=== PATIENT | male | born 1965 | race Two or more races ===

== ENCOUNTER 2018-01-16 08:23 | Inpatient (IN) | payer OTHER ==
[2018-01-04 18:02] LABS: BASOPHILS % (AUTO) 0.9 % (0.0-2.0); HEMATOCRIT 49.4 % (42.0-52.0); HEMOGLOBIN 16.4 G/DL (14.2-18.0); LYMPHOCYTES % (AUTO) 30.8 % (20.0-45.0); MEAN CORPUSCULAR VOLUME 80 FL (80-99); MONOCYTES % (AUTO) 6.5 % (1.0-10.0); NEUTROPHILS % (AUTO) 59.8 % (45.0-75.0); PLATELET COUNT 261 K/UL (150-450); RED BLOOD COUNT 6.16 M/UL (4.70-6.10); RED CELL DISTRIBUTION WIDTH 12.8 % (11.6-14.8)
[2018-01-04 18:21] LABS: ALANINE AMINOTRANSFERASE 58 U/L (12-78); ALBUMIN 4.2 G/DL (3.4-5.0); ALBUMIN/GLOBULIN RATIO 1.1 (1.0-2.7); ALKALINE PHOSPHATASE 98 U/L (46-116); ANION GAP 8 mmol/L (5-15); ASPARTATE AMINO TRANSFERASE 23 U/L (15-37); BILIRUBIN,TOTAL 0.4 MG/DL (0.2-1.0); BLOOD UREA NITROGEN 10 mg/dL (7-18); CALCIUM 9.3 MG/DL (8.5-10.1); CARBON DIOXIDE 29 MMOL/L (21-32); CHLORIDE 102 MMOL/L (98-107); CREATININE 0.7 MG/DL (0.55-1.30); POTASSIUM 3.6 MMOL/L (3.5-5.1); SODIUM 139 MMOL/L (136-145)
--- NOTE | 2018-01-05 11:56 | Diagnostic Imaging Report ---
Indication: Cough Comparison: None 2 views of the chest obtained. Findings: Cardiomediastinal silhouette and pulmonary vascularity are within normal limits for age. The diaphragmatic contour is smooth and costophrenic angles are sharp. No pleural effusions are identified. The bones are unremarkable. Impression: No acute disease
[~2018-01-16] VITALS: Ht 167.6 cm; Wt 107.5 kg
[2018-01-16] VITALS (9 sets, daily range): BP systolic 111–134; BP diastolic 60–84
[~2018-01-16 08:23] MED LIST: ceFAZolin sod 2 GM in D5W 110 ML IVPB ONE
[2018-01-16] MEDS ORDERED: GLIPIZIDE5 MG ORAL (09:04)
[2018-01-16] MEDS ORDERED: HUMULIN N100 UNIT/4 SQ ×2 (09:04→09:06)
[2018-01-16] MEDS ORDERED: NORVASC5 MG ORAL (09:04)
[2018-01-16] MEDS ORDERED: METFORMIN HCL1000 M1 ORAL (09:04)
[2018-01-16] MEDS ORDERED: SIMVASTATIN20 MG ORAL (09:04)
--- NOTE | 2018-01-16 09:15 | Pre-Procedure Note/Attestation ---
Pre-Procedure Note/Attestation Complete Prior to Procedure Procedure Narrative: L3-5 B, L5S1 L laminoforaminotomies/discectomy Indications for Procedure Pre-Operative Diagnosis: L3-s1 stenosis Attestation I attest that I discussed the nature of the procedure; its benefits; risks and complications; and alternatives (and the risks and benefits of such alternatives ), prior to the procedure, with the patient (or the patient's legal insurance verification representative). I attest that, if there was a reasonable possibility of needing a blood transfusion, the patient (or the patient's legal insurance verification representative) was given the [facility] standardized written summary, pursuant to the [place] Blood Safety Act ([place] Health and Safety Code # 1645, as amended). I attest that I re-evaluated the patient just prior to the surgery and that there has been no change in the patient's H&P, except as documented below: MAJO AMBROSE Jan 16, 2018 09:15
--- NOTE | 2018-01-16 09:21 | Brief Operative Note ---
Immediate Post Operative Note Operative Note Pre-op Diagnosis: L3-s1 stenosis Procedure: L3-5 B, L5S1 L laminoforaminotomies/discectomy (discectomy r l34, L l5s1) Post-op Diagnosis: same as pre-op Findings: consistent w/pre-op dx studies Surgeon: wiliam Review Manager: leda tavarez Anesthesiologist: laura Anesthesia: general Specimen: yes - disc lamina Complications: none Condition: stable Fluids: 1200 Estimated Blood Loss: volume - 150 Drains: hemovac Implant(s) used?: No MAJO AMBROSE Jan 16, 2018 09:21
[2018-01-16] MEDS ORDERED: Thrombin 5000 units TOPIC ONE (13:33)
[2018-01-16] MEDS ORDERED: EPINEPHrine 1mg/1ml Amp ONE (13:34)
[2018-01-16] MEDS ORDERED: Bupivacaine 0.5% Inj 30 ml vial INJ ONE (13:34)
[2018-01-16] MEDS ORDERED: Bacitracin 50000 Units Vial ONE (13:35)
[2018-01-16] MEDS ORDERED: Vancomycin 1gm inj IVPB ONE ×3 (13:35→18:58)
[2018-01-16] MEDS ORDERED: Gelfoam Absorbable 1gm powder pkt TOPIC ONE (13:35)
[2018-01-16] MEDS ORDERED: Thrombin 5000 units spray kit TOPIC ONE (13:35)
[2018-01-16] MEDS ORDERED: Glycopyrrolate 0.2mg/ml 1ml Vial ONE (15:00)
[2018-01-16] MEDS ORDERED: Propofol 1,000mg/ 100ml btl IV ONE (15:00)
[2018-01-16] MEDS ORDERED: Midazolam 2mg/2ml Inj ONE (15:00)
[2018-01-16] MEDS ORDERED: Ketorolac 30mg Inj ONE (15:00)
[2018-01-16] MEDS ORDERED: Zemuron 50mg/5ml Inj IV ONE (15:00)
[2018-01-16] MEDS ORDERED: Neostigmine 1mg/ml 10ml Inj ONE (15:00)
[2018-01-16] MEDS ORDERED: Succinylcholine 20mg/ml 10ml vial ONE (15:00)
[2018-01-16] MEDS ORDERED: LR 1000ml ONE (15:00)
[2018-01-16] MEDS ORDERED: fentaNYL 100 mcg/2 mL IV ONE (15:00)
[2018-01-16] MEDS ORDERED: NS Irrig 1000ml ONE (15:00)
[2018-01-16] MEDS ORDERED: Morphine Sulfate 10mg/ml Inj ONE (15:00)
[2018-01-16] MEDS ORDERED: LR 1000ml 1,000 ML IVLG SCH (15:58)
--- NOTE | 2018-01-16 15:58 | Anethesia Preoperative Eval ---
Anesthesia Pre-op PMH/ROS General Date of Evaluation: Jan 16, 2018 Time of Evaluation: 14:40 Anesthesiologist: Brenda ASA Score: ASA 3 Mallampati Score Class I : Soft palate, uvula, fauces, pillars visible Class II: Soft palate, uvula, fauces visible Class III: Soft palate, base of uvula visible Class IV: Only hard plate visible Mallampati Classification: Class III Surgeon: Tito Diagnosis: Lumbar spinal stenosis Surgical Procedure: L3-L5 laminotomy with decompression Anesthesia History: none Family History: no anesthesia problems Allergies: Coded Allergies: No Known Allergies (Unverified , 01/16/18) Medications: see eMAR Past Medical History Cardiovascular: Reports: HTN, arrhythmia - h/o AF stable past ablasion, Denies: CAD, [place], valve dz, other Pulmonary: Denies: asthma, COPD, KERWIN, other Gastrointestinal/Genitourinary: Reports: GERD, Denies: CRI, ESRD, other Neurologic/Psychiatric: Denies: dementia, CVA, depression/anxiety, TIA, other Endocrine: Reports: DM, Denies: hypothyroidism, steroids, other HEENT: Denies: cataract (L), cataract (R), glaucoma, CHEESH-NA (L), CHEESH-NA (R), other Hematology/Immune: Denies: anemia, DVT, bleeding disorder, other Musculoskeletal/Integumentary: Denies: OA, RA, DJD, DDD, edema, other Other: obesity PMH Narrative: as above PSxH Narrative: cardiac ablation Anesthesia Pre-op Phys. Exam Physician Exam Last Vital Signs Date Time Temp Pulse Resp B/P (MAP) Pulse Ox O2 Delivery O2 Flow Rate FiO2 01/16/18 08:53 97.9 93 18 134/84 96 Room Air 97.9 Constitutional: NAD Neurologic: CN 2-12 intact Cardiovascular: RRR Respiratory: CTA Gastrointestinal: S/NT/ND Airway Exam Mallampati Score: Class III MO: limited Neck: short ROM: limited Teeth: missing Dentures: no upper, no lower Anesthesia Pre-op A/P Labs see chart Studies Pre-op Studies: EKG - NSR Risk Assessment & Plan Assessment: ASA 3 Plan: GA with ETT prone position neuromonitoring Status Change Before Surgery: No Pre-Antibiotics Drug: Ancef 2 gr. Given Within 1 Hr of Incision: Yes Time Given: 15:16 GIOVANNA DIXON M.D. Jan 16, 2018 15:58
[2018-01-16] MEDS ORDERED: Meperidine 50mg/ml Inj(FOR RIGORS ONLY) IV PRN (16:00)
[2018-01-16] MEDS ORDERED: Midazolam 2mg/2ml Inj IVP PRN (16:00)
[2018-01-16] MEDS ORDERED: Ketorolac 30mg Inj IV PRN (16:00)
[2018-01-16] MEDS ORDERED: Hydromorphone 0.5mg/0.5ml inj IVP PRN (16:00)
[2018-01-16] MEDS ORDERED: DiphenhydrAMINE 50mg/ml Inj IVP PRN (16:00)
[2018-01-16] MEDS ORDERED: Propofol 200mg/20ml IV ONE (16:35)
[2018-01-16] MEDS ORDERED: D5 1/2NS 1,000 ML IV SCH (18:14)
[2018-01-16] MEDS ORDERED: HYDROcodone/Acetamin 7.5/325 tab ORAL PRN ×2 (18:15)
[2018-01-16] MEDS ORDERED: Norco 5mg/325mg tab ORAL PRN (18:15)
[2018-01-16] MEDS ORDERED: HYDROmorphone 1mg/ml Carpuject SUBQ PRN ×2 (18:15→18:45)
[2018-01-16] MEDS ORDERED: Milk of Magnesia 30ml Ud ORAL PRN (18:15)
[2018-01-16] MEDS ORDERED: traMADol 50mg tab ORAL PRN (18:15)
[2018-01-16] MEDS ORDERED: Chloraseptic Spray 20mL Bottle ORAL PRN (18:45)
[2018-01-16] MEDS ORDERED: Cyclobenzaprine 10mg Tab ORAL PRN (18:45)
[2018-01-16] MEDS ORDERED: oxyCODONE 5mg IR tab ORAL PRN (18:45)
[2018-01-16] MEDS ORDERED: HYDROcodone/Acetamin 10/325 tab ORAL PRN (18:45)
[2018-01-16] MEDS: fentaNYL 100 mcg/2 mL IV PRN ×2 (19:21→19:41)
[2018-01-16] MEDS ORDERED: PCA HYDROmorphone 1mg/ml 30 ML IV PRN (19:48)
--- NOTE | 2018-01-16 20:29 | Immediate Post-Op Evaluation ---
Immediate Post-Op Evalulation Immediate Post-Op Evalulation Procedure: L3-L5 laminotomy with decompression Date of Evaluation: Jan 16, 2018 Time of Evaluation: 19:14 IV Fluids: 1500 Blood Products: none Estimated Blood Loss: 200 Urinary Output: 50 Blood Pressure Systolic: 108 Blood Pressure Diastolic: 56 Pulse Rate: 84 Respiratory Rate: 20 O2 Sat by Pulse Oximetry: 99 Temperature (Fahrenheit): 98.2 Pain Score (1-10): 3 Nausea: No Vomiting: No Complications none Patient Status: reacts, patent, extubated, none Hydration Status: adequate GIOVANNA DIXON M.D. Jan 16, 2018 20:29
[2018-01-16] MEDS ORDERED: LORazepam 0.5mg tab ORAL SCH (21:00)
[2018-01-16] MEDS: NS w/KCl 20mEq 1,000 ML IV SCH (23:19)
[2018-01-16] MEDS: ceFAZolin sod 1 GM in D5W 55 ML IV SCH (23:19)
[2018-01-16] MEDS: NovoLOG Insulin Flexpen SUBQ SCH (23:24)
--- NOTE | 2018-01-16 23:45 | Operative Note - Dictated ---
DATE OF OPERATION: 01/16/2018 SURGEON: Cj Francis M.D. UPPER CUTTER: Solitario Hyman PA-C. ANESTHESIOLOGIST: Hiram Gutierrez M.D. ANESTHESIA TYPE: General endotracheal anesthesia. PREOPERATIVE DIAGNOSES: 1. Spinal stenosis L3 through L5 centrally and bilateral lateral recess as well as the left-sided L5-S1 foraminal. 2. Disc protrusions left-sided L5-S1 and right-sided L3-L4. 3. Advanced discogenic collapse at L4-L5 with calcified protrusions at L4-L5 and L5-S1. OPERATIONS PERFORMED: 1. Bilateral keyhole laminal foraminotomies L3, L4, and L5. 2. Left-sided hemilaminotomy and foraminotomy at L5-S1. 3. Diskectomy right side L3-L4. 4. Partial diskectomy left side L5-S1. 5. Use of operating microscope. 6. Neurolysis. 7. Neurodiagnostic monitoring. 8. Use of fluoroscopy. ESTIMATED BLOOD LOSS: 150 mL. COMPLICATIONS: None. FINDINGS: 1. Calcified disc herniations at the L5-S1 level left side as well as advanced facet hypertrophy. 2. Moderately severe stenosis L3-4 and L4-5. INDICATIONS: The patient is a very pleasant gentleman with significant back pain and radiculopathic complaints. Conservative care had been attempted and failed. Surgical recommendations were proposed based on radiographic findings. The patient elected to proceed with surgery. RISKS NOTES: The patient was explained in detail risks and benefits of surgery to include, but not be limited to, those of bleeding, infection, damage to nerves, vessels, tendons, anesthetic risk, allergic reaction, aspiration, and possibly . The patient understood and wished to proceed. OPERATIVE PROCEDURE IN DETAIL: The patient was taken to the operating suite. After general endotracheal anesthesia was obtained, he was turned prone onto a radiolucent table. The back was prepped and draped in the usual sterile fashion. Under fluoroscopic guidance, the L3 through L5 levels were marked out. Incision was carried out from L3 through S1. Subperiosteal dissection was carried out bilaterally at L3-4, L4-5, and on the left side at L5-S1. These levels were radiographically confirmed to be at the L4-L5 level on imaging studies. At this point, operating microscope was brought into place and a hemilaminotomy was performed using standard technique by drilling out the leading edge of the lamina of L4 and superior edge of L5. Ligamentum flavum was removed in a piecemeal fashion. Medial facetectomy was performed. This was performed using standard technique using high-speed drill, curettes, and Kerrison punches. Neural foraminotomy was achieved by osteotomizing the leading edge of the superior articular process of L5 at the L4-L5 level. The L4-5 disc was inspected although was prominent. Attempts were made to remove it, however, this was a completely calcified and collapsed disc and therefore, a foraminotomy was performed to allow for appropriate nerve roots exit. FloSeal was applied. Hemostasis was applied. This area was packed off and attention was turned to the left L3-L4 level and the procedure was identically repeated. Once this level was completed, attention was turned to the right side at the L3-L4 level and the hemilaminotomy and foraminotomy of the leading edge of L3 and superior edge of L4 and medial facetectomy was performed. At this point, the nerve root was gently retracted medially and a prominent disc fragment was identified and a right-sided/central diskectomy was performed by incising the disc using a 15 scalpel and mechanically decompressing the disc using pituitaries as well as angled curette. Once satisfied with the diskectomy, copious intradiscal irrigation was performed leaving all disc fragments. Please note that, L3-4 demonstrated an empty disc phenomenon. At this point, the L3-4 level was packed off. Attention was turned to the L4-L5 level on the right side and in an identical fashion, hemilaminotomy, foraminotomy, and neurolysis was achieved using operating microscope. Once completing these two levels, FloSeal was applied and packing was applied. Attention was then turned onto the left side at L5-S1 and a very generous laminectomy and significant facetectomy was performed. A very large calcified disc fragment and spur osteophyte was identified. The leading edge of the facet joints of superior articular process of S1 was osteotomized. This allowed for probing of the neural foramen and the L5 nerve root. Although the L5 nerve roots could be probed and was patent, the disc osteophyte complex was still compressing structures. At this point, with the use of a down pushing curette as well as a mallet, the disc/osteophyte complex was invaginated onto itself and impacted so as to achieve 1 to 2 mm of space, which then allowed for the exiting nerve roots. The traversing nerve roots was patent based on the extensive dorsal laminectomy. Once satisfied with the decompression, copious irrigation was performed throughout. Hemostasis was achieved. Due to the patient's obesity, the patient did receive 1 gram of vancomycin to avoid postoperative infection. Medium-sized Hemovac drain was placed deep to the fascia. Fascia was repaired using #1 Vicryl and subcutaneous closure using 2-0 Vicryl. Sterile dressing was applied. At the time of this dictation, the patient was awaiting extubation. Cj Francis M.D. DR: GUS JOB#: [id number] CC:
[2018-01-17] VITALS: BP 109/57
--- NOTE | 2018-01-17 03:00 | Consultation ---
DATE OF CONSULTATION: 01/16/2018 CONSULTING PHYSICIAN: Huber Sotomayor M.D. REFERRING PHYSICIAN: Cj Francis M.D. REASON FOR CONSULTATION: Acute pain consult. HISTORY OF PRESENT ILLNESS: Dear Dr. Cj Francis, Thank you kindly for consulting me to evaluate and render an opinion as to how to proceed in the management of the patient's acute postoperative lumbar spine pain after multiple level lumbar spine surgery today. The patient is a morbidly obese 52-year-old gentleman, who injured his back in a work-related injury. With his morbid obesity and risk for postoperative complications, you consulted me to help with the patient's pain control. I saw the patient at the bedside. I performed a detailed history and physical examination. I discussed the case with yourself Dr. Francis along with the recovery room nurse, RN, Lou. I spent over 75 minutes in consultation with an additional 30 minutes in medical record review. I reviewed multiple records from today's date of surgery at [facility], 01/16/2018 including consent for surgical treatment, consent for anesthesia, consent for blood products, medication administration record, medication reconciliation order form, PACU record, PACU orders, anesthesia record, previous anesthesia evaluation record, postoperative spine surgical orders and postoperative surgery report by Dr. Francis, surgical invasive procedure checklist, perioperative 24-hour care, intraoperative nursing record, and 24-hour medical surgical flow sheet. Multiple preoperative records were reviewed including diagnostic testing. PAST MEDICAL HISTORY: 1. Acute postoperative lumbar spine pain, status post multiple-level lumbar spine surgery by Dr. Cj Francis in January 2018. 2. Work-related injury. 3. Morbid obesity. 4. Diabetes. 5. Hypertension. 6. Hypercholesterolemia. PAST SURGICAL HISTORY: List in the medical record. MEDICATIONS AT HOME: Zocor, NPH Humulin, metformin, glipizide, and Norvasc. ALLERGIES: No known drug allergies. SOCIAL HISTORY: The patient denies marijuana usage. He smokes tobacco rarely. He does binge drink beer on the weekends, total six packs of beer each weekend. FAMILY HISTORY: Diabetes, hypertension, and obesity. REVIEW OF SYSTEMS: Per attending physician. PHYSICAL EXAMINATION: GENERAL: Age 52, height 167 cm, weight 108 kg, and body mass index 38. VITAL SIGNS: Afebrile, pulse 95, respirations 20, blood pressure 116/71, and pulse 96% on supplemental oxygen. HEENT: Thick neck. Extraocular muscles intact. Pupils equal, round, and accommodative. NEUROLOGIC: Moving all extremities x4. A detailed neurologic exam per the surgeon. CHEST: Barrel chested. ABDOMEN: Morbidly obese. BACK: Lumbar spine shows dry dressing and pain with log rolling. Straight leg raising deferred secondary to pain. GENITOURINARY: Deferred. DIAGNOSTIC TESTING: Is in the medical record including laboratory studies. IMPRESSION: 1. Acute postoperative lumbar spine pain, status post multiple-level lumbar spine surgery by Dr. Cj Francis in January 2018. 2. Work-related injury. 3. Morbid obesity. 4. Diabetes. 5. Hypertension. 6. Hypercholesterolemia. TREATMENT AND RECOMMENDATIONS: I have made the following recommendations after discussing the patient's case with yourself, Dr. Francis and the recovery room nurse, and after reviewing the medical record in detail and performing a detailed history and physical examination. I have spoken with the pharmacist, Pharm D Debbie to start a Dilaudid DIRECTOR [employer]. I have ordered a 0.2 mg demand dose at 10-minute lockout and a 3 mg 4-hour limit. With his morbid obesity, he should be on continuous pulse oximetry and supplemental oxygen for least the first 24 hours for better safety. The patient does state that he has tolerated [place] adequately in the past without significant adverse side effects. Therefore, I have ordered a breakthrough doses of [place] 10/325 one tablet orally every three hours p.r.n. for mild pain. I have added a breakthrough rescue dose of Dilaudid 1 mg subcutaneously every three hours p.r.n. for severe breakthrough pain. Because the patient does drink significant doses of beer, I have ordered a bedtime dose of Ativan 0.5 mg at bedtime to help reduce his opioid requirements. This dosing may need to be increased. There is a shortage of Zofran in the hospital as an antiemetic agent. I, therefore, ordered Phenergan 12.5 mg intramuscular every 8 hours p.r.n. in case of any nausea symptoms. If Zofran does become available, I have ordered 4 mg intravenously every 4 hours p.r.n. as well. I have empirically placed the patient on Protonix 40 mg nightly for GI ulcer prophylaxis. I have also ordered a p.r.n. dose of Mylanta 30 mL q.6 hours in case of any GERD symptom exacerbation. I will place the patient on Colace 100 mg b.i.d. along with a p.r.n. dose of milk of magnesia as a rescue laxative to help bowel regularity. In case of any itching complaints, I have ordered Benadryl 25 mg q.6 hours p.r.n. I have also ordered Chloraseptic spray to the bedside to help with any sore throat complaints. I will order a p.r.n. dose of Flexeril 10 mg in case of any muscle spasm complaints. With the patient's significant diabetes, I have removed the dextrose from the ordered intravenous fluids postoperatively. I will defer medical management to the hospitalist team. In case of any headache complaints, I have ordered Fioricet one tablet orally every 8 hours p.r.n. and I have streamlined the patient's medication list to reduce the risk of medication administration errors. I have ordered incentive spirometer in this morbidly obese gentleman to encourage good pulmonary toilet. I will defer DVT prophylaxis to the surgeon. Huber Sotomayor M.D. DR: PAYAL JOB#: [id number] CC:
[2018-01-17 04:52] VITALS: BP 114/67
[2018-01-17] MEDS: ceFAZolin sod 1 GM in D5W 55 ML IV SCH ×2 (05:54→13:49)
[2018-01-17] MEDS: NovoLOG Insulin Flexpen SUBQ SCH ×3 (05:58→16:23)
[2018-01-17] MEDS: NS w/KCl 20mEq 1,000 ML IV SCH ×2 (06:35→11:12)
[2018-01-17 08:00] VITALS: BP 125/96
[2018-01-17 08:02] LABS: BASOPHILS % (AUTO) 0.6 % (0.0-2.0); EOSINOPHILS % (AUTO) 0.8 % (0.0-3.0); HEMATOCRIT 40.3 % (42.0-52.0); HEMOGLOBIN 13.6 G/DL (14.2-18.0); LYMPHOCYTES % (AUTO) 24.6 % (20.0-45.0); MEAN CORPUSCULAR VOLUME 80 FL (80-99); MONOCYTES % (AUTO) 7.6 % (1.0-10.0); NEUTROPHILS % (AUTO) 66.4 % (45.0-75.0); PLATELET COUNT 167 K/UL (150-450); RED BLOOD COUNT 5.06 M/UL (4.70-6.10); RED CELL DISTRIBUTION WIDTH 13.2 % (11.6-14.8); WHITE BLOOD COUNT 11.2 K/UL (4.8-10.8)
[2018-01-17] MEDS ORDERED: Docusate 100mg cap ORAL SCH (09:00)
--- NOTE | 2018-01-17 11:47 | 48 Hour Post Anesthesia Eval ---
Post Anesthesia Evaluation Procedure: L3-L5 laminotomy with decompression Date of Evaluation: Jan 17, 2018 Time of Evaluation: 11:46 Blood Pressure Systolic: 125 0: 96 Pulse Rate: 115 Respiratory Rate: 18 Temperature (Fahrenheit): 98.2 O2 Sat by Pulse Oximetry: 94 Airway: patent Nausea: No Vomiting: No Pain Intensity: 3 Hydration Status: adequate Cardiopulmonary Status: Stable Mental Status/LOC: patient returned to baseline Follow-up Care/Observations: 0 Post-Anesthesia Complications: 0 Follow-up care needed: N/A Sehrman Moran MD Jan 17, 2018 11:47
[2018-01-17 12:00] VITALS: BP 126/79
--- NOTE | 2018-01-17 13:19 | Orthopedic Spine Progress Note ---
Ortho Spine - Progress Note Subjective Symptoms: c/o post-op back pain, improved Objective Vital Signs: Last 24 Hour Vital Signs Date Time Temp Pulse Resp B/P (MAP) Pulse Ox O2 Delivery O2 Flow Rate FiO2 01/17/18 12:00 18 01/17/18 11:47 208.8 115 18 94 01/17/18 08:00 18 01/17/18 08:00 98.2 115 20 125/96 94 Room Air 98.2 01/17/18 04:52 98.3 102 19 114/67 98 98.3 01/17/18 04:00 14 01/17/18 00:00 98.0 101 18 109/57 98 98.0 01/17/18 00:00 14 01/16/18 20:35 14 01/16/18 20:32 98.2 01/16/18 20:29 208.8 84 20 99 01/16/18 20:20 14 01/16/18 20:15 97.8 95 14 120/77 96 Nasal Cannula 3.0 97.8 01/16/18 20:05 16 01/16/18 20:02 97.9 01/16/18 20:02 96 13 123/80 96 Nasal Cannula 3.0 01/16/18 19:52 97 18 123/74 96 Nasal Cannula 3.0 01/16/18 19:52 14 01/16/18 19:52 97.9 01/16/18 19:41 97.9 01/16/18 19:41 95 20 116/71 96 Nasal Cannula 3.0 01/16/18 19:30 98 18 111/71 96 Nasal Cannula 3.0 01/16/18 19:21 97.9 01/16/18 19:20 97 23 129/60 96 Nasal Cannula 3.0 01/16/18 19:15 99 18 111/67 100 Simple Mask 6.0 01/16/18 19:10 98.3 97 20 116/64 100 Simple Mask 6.0 98.3 I&O: Intake and Output 01/16/18 01/17/18 19:00 07:00 Intake Total 3000 ml Output Total 1010 ml Balance 1990 ml Intake Oral 600 ml IV Total 2400 ml Output Urine Total 730 ml Drainage Total 80 ml Estimated Blood Loss 200 ml # Voids 1 1 Drains: hemovac Neuro Status: normal Assessment Procedure Performed: L3-5 B, L5S1 L laminoforaminotomies/discectomy (discectomy r l34, L l5s1) Plan Plan: PT, pain management, d/c antibiotics, d/c drain, discharge plan MAJO AMBROSE Jan 17, 2018 13:19
[2018-01-17] MEDS ORDERED: HYDROmorphone 1mg/ml Carpuject SUBQ PRN (14:45)
[2018-01-17] MEDS ORDERED: NORCO 10-325 T1 EACH ORAL (14:57)
[2018-01-17] MEDS ORDERED: Rate Change PCA 1 Each MISC PRN (15:00)
[2018-01-17] MEDS ORDERED: Magnesium Citrate Liq Btl ORAL ONE (15:30)
[2018-01-17] MEDS ORDERED: D5 1/2NS 1000ml IV ONE (16:45)
[2018-01-17] MEDS ORDERED: Tubing IV Secondary IV ONE (16:45)
[2018-01-17] MEDS ORDERED: D5 1/2NS 1,000 ML IV SCH (18:14)
--- NOTE | 2018-01-17 18:40 | Internal Med Progress Note ---
Subjective Date of Service: Jan 17, 2018 Physician Name Franklin Johnson Attending Physician Cj Francis Allergies: Coded Allergies: No Known Allergies (Unverified , 01/16/18) ROS Limited/Unobtainable: No Constitutional: Reports: no symptoms HEENT: Reports: no symptoms Cardiovascular: Reports: no symptoms Respiratory: Reports: no symptoms Gastrointestinal/Abdominal: Reports: no symptoms Genitourinary: Reports: no symptoms Neurologic/Psychiatric: Reports: no symptoms Subjective 52 YO M with low back pain; S/P lumbar discectomy, foraminotomy and laminectomy on 01/16/18. Cover for Int Iván-DR Solis Objective Last Vital Signs Date Time Temp Pulse Resp B/P (MAP) Pulse Ox O2 Delivery O2 Flow Rate FiO2 01/17/18 16:25 97.7 01/17/18 15:00 18 01/17/18 12:00 89 126/79 97 Room Air 01/16/18 20:15 3.0 General Appearance: WD/WN, no apparent distress, alert EENT: PERRL/EOMI, normal ENT inspection Neck: non-tender, normal alignment, supple, normal inspection Cardiovascular: normal peripheral pulses, normal rate, regular rhythm, no gallop/murmur, no JVD Respiratory/Chest: chest wall non-tender, lungs clear, normal breath sounds, no respiratory distress, no accessory muscle use Abdomen: normal bowel sounds, non tender, soft, no organomegaly, no mass Extremities: normal range of motion, non-tender Neurologic: go go dancer II-XII grossly normal, no motor/sensory deficits Skin: normal pigmentation, warm/dry Laboratory Tests Test 01/17/18 06:30 White Blood Count 11.2 K/UL (4.8-10.8) H Red Blood Count 5.06 M/UL (4.70-6.10) Hemoglobin 13.6 G/DL (14.2-18.0) L Hematocrit 40.3 % (42.0-52.0) L Mean Corpuscular Volume 80 FL (80-99) Mean Corpuscular Hemoglobin 26.9 PG (27.0-31.0) L Mean Corpuscular Hemoglobin Concent 33.7 G/DL (32.0-36.0) Red Cell Distribution Width 13.2 % (11.6-14.8) Platelet Count 167 K/UL (150-450) Mean Platelet Volume 7.6 FL (6.5-10.1) Neutrophils (%) (Auto) 66.4 % (45.0-75.0) Lymphocytes (%) (Auto) 24.6 % (20.0-45.0) Monocytes (%) (Auto) 7.6 % (1.0-10.0) Eosinophils (%) (Auto) 0.8 % (0.0-3.0) Basophils (%) (Auto) 0.6 % (0.0-2.0) Hemoglobin A1c 8.0 % (4.3-6.0) H Intake and Output 01/16/18 01/17/18 19:00 07:00 Intake Total 3000 ml Output Total 1010 ml Balance 1990 ml Intake Oral 600 ml IV Total 2400 ml Output Urine Total 730 ml Drainage Total 80 ml Estimated Blood Loss 200 ml # Voids 1 1 Assessment/Plan Problem List: (1) Diabetes mellitus, type II Assessment & Plan: Continue novolog sliding scale (2) HTN (hypertension) (3) Lumbar stenosis with neurogenic claudication Assessment & Plan: S/P lumbar foraminotomy, laminectomy and discectomy 01/16/18 - see surgery note. Status: stable FRANKLIN JOHNSON Jan 17, 2018 18:40
[2018-01-17] MEDS ORDERED: PCA shift volume MISC SCH (19:00)
--- NOTE | 2018-01-17 20:30 | Progress Note ---
DATE: 01/17/2018 ACUTE PAIN MANAGEMENT PHYSICIAN PROGRESS NOTE MEDICATIONS: Medication administration record reviewed. Medications include IV fluids, Dilaudid MACHINE LEATHER TRIMMER, Colace, Protonix, bedtime Ativan, and diabetes medications. As needed medications include Tylenol, milk of magnesia, Benadryl, Phenergan, Zofran, Fioricet, Chloraseptic spray, Mylanta, [place], Dilaudid and Flexeril. LABORATORY AND DIAGNOSTIC DATA: Laboratory studies from this morning, 01/17/2018 shows white count 11, hematocrit 40, and platelets 167. Hemoglobin A1c 8.0. Vital signs, pain level is 6/10 on the visual analog pain scale, afebrile, pulse 89, respirations 18, blood pressure 126/79, and oxygen saturation 97% on room air. I saw the patient at bedside with the surgeon, Dr. Cj Francis and the nurse RN, Lawanda. The patient slept poorly overnight, but appears in good spirits, except for moderate exhaustion. He is neurologically intact. He ambulated quite well with physical therapy twice today, walking over 100 feet. The patient has been advancing his diet without any difficulties. He is swallowing, breathing, and phonating within normal limits. The patient denies any shortness of breath or chest pain. The patient has been using his Dilaudid MACHINE LEATHER TRIMMER with good analgesic effect. He has been using [place] at home and still has a few tablets for home usage. I did leave a prescription for 75 tablets of [place] for outpatient usage. He will continue with his MACHINE LEATHER TRIMMER and p.r.n. [place] and breakthrough Dilaudid while he remains in the hospital. I did dose the patient with bedtime Ativan last night, that seemed to have no effect and certainly no over sedation. I have ordered incentive spirometer to encourage good pulmonary toilet. The patient was asked about constipation issues and I have asked the nurse to dose the patient with magnesium citrate 300 mL. Drainage from the indwelling lumbar spine drain catheter overnight was 80 mL. Drainage for 7 hours from the start of morning shift until after lunch was only 30 mL. The patient was turned to the left lateral decubitus position. I examined the lumbar spine dressing, which was clean and dry. I removed the dressing to reveal the incision line, clean and dry with DuraBond sealant intact. There is no evidence for exudate or erythema. The drain hole site appeared clean and dry as well with the Hemovac drain taken off of suction and with end-expiration I personally removed the indwelling lumbar spine drain catheter. The tip was intact. Alcohol swab was applied generously to the drain hole site. Sterile 4 x 4 gauze was then applied over the incision line and drain hole site followed by [place] gauze dressings. The patient will follow up with Dr. Francis in the outpatient clinic in approximately two weeks. Huber Sotomayor M.D. DR: SOBEIDA JOB#: [id number] CC:
[2018-01-18] MEDS ORDERED: Magnesium Citrate Liq Btl ORAL PRN (03:00)
--- NOTE | 2018-01-18 14:19 | Discharge Summary ---
Discharge Summary Hospital Course Date of Admission Jan 16, 2018 at 08:23 Date of Discharge Jan 17, 2018 at 16:46 Admitting Diagnosis HPI Haroldo Jr Dora is a 52 year old male who was admitted on Jan 16, 2018 at 08: 23 for Severe Spondylosis Hospital Course [id number] Discharge Discharge Disposition Patient was discharged to Home (01) Discharge Diagnoses: Chelly Hernandez NP Jan 18, 2018 14:19
--- NOTE | 2018-01-19 01:30 | Discharge Summary 2 SIG ---
DATE OF ADMISSION: 01/16/2018 DATE OF DISCHARGE: 01/17/2018 FROG FARMER: 1. Huber Sotomayor M.D. 2. Franklin Warren M.D. BRIEF HOSPITAL COURSE: The patient is a 52-year-old male, who sustained an injury on 08/13/2014, who had undergone conservative care and had failed, elected to proceed with surgery. He was admitted on 01/16/2018 and underwent L3-L4 and L5 bilateral foraminotomies and left-sided hemilaminotomy and foraminotomy on L5-S1. Findings postop showed calcified disk herniation at L5-S1 level on the left side as well as advanced facet hypertrophy. There was moderately severe stenosis on L3-L4 and L4-L5. He tolerated procedure well and post surgery was seen by pain management. He was given Dilaudid [employer] with continuous pulse oximetry due to morbid obesity. He was given Protonix for gastrointestinal ulcer prophylaxis and was given muscle relaxants and stool softeners. He was encouraged use of incentive spirometry. Following day, drain was discontinued. His diet was advanced. He was neurologically intact and was ambulating well with physical therapy walking over 100 feet. He was discharged home. FINAL DIAGNOSIS: Spinal stenosis L3-L5 as well as left-sided L5-S1 status post bilateral foraminotomy L3-L4, L5 and left-sided hemilaminotomy and foraminotomy on L5-S1. Please refer to operative report. DISPOSITION: The patient was discharged home. DISCHARGE MEDICATIONS: Refer to medication list. Continue with Urania p.r.n. pain. DISCHARGE INSTRUCTIONS: Follow up with Dr. Francis as outpatient. Cj Francis M.D. I have been assigned to dictate discharge summary on this account and I was not involved in the patient's management. Chelly Hernandez N.P. DR: YUSUF JOB#: [id number] CC: DANNY
== END 2018-01-17 16:46 | disposition home or self-care (01) | DRG 519 ==
LOC: SDSOVERFLO 08:23 → 3E 21:21
PROC: 01NB0ZZ Release Lumbar Nerve, Open Approach (ICD-10-PCS; principal; 2018-01-16 13:00)
PROC: 0ST40ZZ Resection of Lumbosacral Disc, Open Approach (ICD-10-PCS; principal; 2018-01-16 13:00)
PROC: 0ST20ZZ Resection of Lumbar Vertebral Disc, Open Approach (ICD-10-PCS; principal; 2018-01-16 13:00)
DX: M51.16 Intervertebral disc disorders with radiculopathy, lumbar region (principal); I47.1 Supraventricular tachycardia; M51.17 Intervertebral disc disorders with radiculopathy, lumbosacral region; M48.07 Spinal stenosis, lumbosacral region; M48.061 Spinal stenosis, lumbar region without neurogenic claudication; M25.78 Osteophyte, vertebrae; G89.18 Other acute postprocedural pain; E66.01 Morbid (severe) obesity due to excess calories; E11.9 Type 2 diabetes mellitus without complications; Z79.4 Long term (current) use of insulin; Z68.35 Body mass index [BMI] 35.0-35.9, adult; I49.9 Cardiac arrhythmia, unspecified; E78.00 Pure hypercholesterolemia, unspecified
CPT/HCPCS: 36415; 71046; 72020; 76001; 80053; 82962; 83036; 83735; 84100; 85025; 85610; 85730; 86850; 86900; 86901; 87081; 94003; 94150; J1815; J2250; J2710